=== PATIENT | male | born 1945 | race American Indian/Alaskan Native ===

== ENCOUNTER 2019-07-03 11:33 | Day surgery (SDC) | payer OTHER ==
[2019-07-03] MEDS ORDERED: SODIUM CHLORIDE 0.9% 1000 ML 1,000 ML IV SCH (12:15)
--- NOTE | 2019-07-03 12:20 | Anesthesia Day of Surgery ---
Anesthesia Day of Surgery - Day of Surgery Patient Examined: Yes Patient H&P Reviewed: Yes Patient is NPO: Yes
--- NOTE | 2019-07-03 12:24 | Anesthesia Consultation ---
Anesthesia Consult and Med Hx Date of service: 07/03/19 - Airway Anesthetic Teeth Evaluation: Caps, Crowns ROM Head & Neck: Adequate Mental/Hyoid Distance: Adequate Mallampati Class: Class II Intubation Access Assessment: Possibly Difficult - Pre-Operative Health Status ASA Pre-Surgery Classification: ASA3 Proposed Anesthetic Plan: MAC - Pre-Anesthesia Comment Pre-Anesthesia Comments: PT STATES HX DIFFICULT INTUBATION - Pulmonary Hx Asthma: Yes Hx Respiratory Symptoms: Yes Home Oxygen Therapy: Yes Hx Sleep Apnea: Yes - Cardiovascular System Hx Hypertension: Yes (CHF. Pt states he obtained cardiac clearance) Hx Cardia Arrhythmia: Yes (AFib/Flutter) - Endocrine Hx Renal Disease: Yes Hx End Stage Renal Disease: Yes (Last HD yesterday) Hx Insulin Dependent Diabetes: Yes - Other Systems Hx Cancer: Yes (Prostate)
[2019-07-03 13:03] LABS: Calcium 9.8 mg/dL (8.4-10.2)
[2019-07-03] MEDS ORDERED: propofoL 200 MG/20 ML VIAL IV ONE ×2 (13:23)
--- NOTE | 2019-07-03 14:36 | Operative Report ---
Operative Report Operative Report: Procedure: Colonoscopy with Snare polypectomy, submucosal injection with elevation of colon polyps. Multiple hot biopsy polypectomies, multiple polyp ablations. Attending physician: Juan Summers M.D. Price Changer: Juan Summers M.D. Indication: Patient is a 73-year-old male who presents for colonoscopy, because of personal history of colon polyps. This colonoscopy serves to evaluate patient so that treatment may be directed based on the findings. Consent: Informed consent was obtained after advising the patient and family regarding nature of this procedure, its indications, potential benefits as well as possible complications including but not limited to bleeding perforation and adverse reaction to medication, infection as well as other cardiopulmonary complications. An informed written and verbal consent was then obtained after due opportunity was provided for questions and answers. Monitoring: Patient was monitored continuously with pulse oximetry and electrocardiographic recordings as well as blood pressure recordings. Vital signs remained stable throughout this procedure with no untoward events. Preoperative assessment: Patient was assessed immediately prior to this procedure for capacity to tolerate monitored anesthesia care and moderate sedation as well as general anesthesia. Patient's ASA classification is 3, Mallampati class is 2, Hyomental distance is 3. Instrument: Olympus video colonoscope.: CF-HQ 190L Medications: Propofol given intravenously in divided doses. For details please refer to anesthesia records. Description of procedure: Patient was placed in the left lateral decubitus position after achieving sedation, a digital rectal examination was performed following which the colonoscope was introduced into the anal verge and advanced to the cecum which was identified by the cecal valve, the appendiceal orifice, as well as by the cecal strap and direct transillumination. The colonoscope was subsequently withdrawn with careful inspection of all mucosal surfaces. Patient tolerated this procedure well and was subsequently taken to the recovery room. The following findings were noted. Findings: The preparation was adequate. Patient had a [place] preps scale score of greater than 6. The withdrawal time from the cecum was greater than 6 minutes. Patient had 7 broad-based sessile or flat polyps seen in the sigmoid colon measuring from 8 mm to 1.5 cm . These was all elevated with submucosal injection of saline and removed by snare electrocautery and retrieved. There was a diminutive polyp in the sigmoid colon which was removed by hot biopsy polypectomy and retrieved. There were multiple diminutive polyps (7 polyps) measuring between 5-7 mm in the rectum which are removed by hot biopsy polypectomy and retrieved. There were 5 polyps in the rectum measuring between 8-1.5 cm. These were elevated with submucosal injection of saline and removed by snare electrocautery and retrieved. There were colonic diverticula in the sigmoid, descending colon and ascending colon colon. There was a diminutive polyp in the rectum which was ablated. There was another diminutive polyp in the transverse colon which was ablated. There were no additional lesions seen. The rest of the colon was normal. On the retroflexed view at the anal verge, patient had internal hemorrhoids. Impression: Sigmoid colon polyps status post snare polypectomy and submucosal injection Rectal polyps status post submucosal injection and snare polypectomy Rectal polyps status post hot biopsy polypectomy Rectal polyp status post ablation Transverse colon polyp status post ablation Diverticular disease of the sigmoid colon. Internal hemorrhoids. Plan: Follow pathology report. High-fiber diet. Consider repeat colonoscopy in one year due to multiple colon polyps .
[2019-07-03 14:44] VITALS: BP 117/60
--- NOTE | 2019-07-03 17:58 | Discharge Summary ---
Short Stay Discharge Plan Activity: advance as tolerated Weight Bearing Status: Weight Bear as Tolerated Diet: regular Additional Instructions: Post Sedation D/C Instructions When you return home you may resume your regular diet unless otherwise d irected. -Go directly home from the hospital and rest quietly. You may resume normal activities tomorrow. -Do NOT drive, return to work, operate any machinery or make any important personal or business decisions today. -Do NOT drink any alcohol or take nerve or sleeping drugs. They add to the effects of the medicine still present in your body. -NO ASPIRIN OR NSAIDS IN THE NEXT 5 DAYS -TAKE A DAILY FIBER WITH PLENTY OF FLUIDS DAILY -FOLLOW UP WITH DR. PENG IN THE NEXT 1-2 WEEKS Follow up with: [facility] [Primary Care Provider] - 7 Days
== END 2019-07-03 11:34 | disposition home or self-care (01) ==
LOC: GIO 11:33
PROVIDERS: ATTEND Internal Medicine Gastroenterology
DX: Z12.11 Encounter for screening for malignant neoplasm of colon (principal); K63.5 Polyp of colon; K62.1 Rectal polyp; K57.30 Diverticulosis of large intestine without perforation or abscess without bleeding; K64.8 Other hemorrhoids; G47.30 Sleep apnea, unspecified; I13.2 Hypertensive heart and chronic kidney disease with heart failure and with stage 5 chronic kidney disease, or end stage renal disease; I50.9 Heart failure, unspecified; E11.22 Type 2 diabetes mellitus with diabetic chronic kidney disease; N18.9 Chronic kidney disease, unspecified; I48.91 Unspecified atrial fibrillation; E78.00 Pure hypercholesterolemia, unspecified; J44.9 Chronic obstructive pulmonary disease, unspecified; M10.9 Gout, unspecified; Z85.46 Personal history of malignant neoplasm of prostate; Z86.010 Personal history of colon polyps; Z79.899 Other long term (current) drug therapy; Z79.01 Long term (current) use of anticoagulants; Z79.84 Long term (current) use of oral hypoglycemic drugs; Z88.8 Allergy status to other drugs, medicaments and biological substances; Z87.891 Personal history of nicotine dependence; Z98.890 Other specified postprocedural states
CPT/HCPCS: 36415; 45381; 45384; 45385; 45388; 80048; 82962; 88305; J2704; J7030